=== PATIENT | female | born 1950 | race Caucasian/White ===

== ENCOUNTER 2017-08-07 08:54 | Outpatient (CLI) | payer BC ==
--- NOTE | 2017-08-07 11:00 | ULT ---
RIGHT UPPER QUADRANT ULTRASOUND: DATE: 08/07/17. COMPARISON: None. HISTORY: Epigastric pain. TECHNIQUE: Multiplanar, bai scale, sonographic imaging of the right upper quadrant provided. FINDINGS: The septic tank servicer reports a negative Holley's sign. Imaged pancreatic parenchyma is grossly unremarka ble. The distal body and the tail of the pancreas are completely obscured by bowel gas. No discrete focal liver lesion or intrahepatic biliary dilatation is seen. The common bile duct kavitha sures 3 mm, within normal limits. There is gallbladder sludge as well as numerous mobile gallstones within the gallbladder lumen. The re is no gallbladder wall thickening or pericholecystic fluid. The right kidney measures 10.4 cm in craniocaudal dimension and demonstrates no stone, hydronephrosi s, or mass. IMPRESSION: Cholelithiasis and gallbladder sludge. No sonographic evidence of cholecystitis or biliary dilatati on. POS: [facility]
== END 2017-08-07 08:55 | disposition home or self-care (01) ==
LOC: ULT 08:54
PROVIDERS: ATTEND Surgery
DX: R10.13 Epigastric pain (principal); K80.20 Calculus of gallbladder without cholecystitis without obstruction; K82.8 Other specified diseases of gallbladder
CPT/HCPCS: 76705

== ENCOUNTER 2018-04-07 19:13 | Inpatient (IN) | payer MEDICARE, BC ==
[2018-04-07 20:06] LABS: Bilirubin Negative (Negative); Blood, Urine Moderate (Negative); Clarity CLEAR (Clear); Glucose, Urine (Dipstick) Negative (Negative); Leukocyte Negative (Negative); Nitrite Negative (Negative); Protein, Urine (Dipstick) Negative (Neg-Trace); Specific Gravity, Urine 1.008 (1.002-1.036)
[2018-04-07 20:07] LABS: #Lymphocytes 1.6 thou/uL (1.20-3.40); #Monocytes 1.1 thou/uL (0.11-0.59); %Basophils 0.4 % (0.0-1.0); %Eosinophils 0.1 % (0.0-10.0); %Lymphocytes 16.6 % (21.0-51.0); %Monocytes 10.9 % (0.0-10.0); Hemoglobin 13.3 g/dL (12.0-16.0); Mean Corpuscular HGB CONC 32.3 g/dL (32.0-36.0); Mean Corpuscular Hemoglobin 28.3 pg (27.0-31.0); Mean Corpuscular Volume 87.7 fl (81.0-99.0); Platelet Count 275 thou/uL (130-400); Red Blood Cell (RBC) Count 4.69 mill/uL (4.20-5.40); White Blood Cell (WBC) Count 9.7 thou/uL (4.8-10.8)
[2018-04-07 20:08] LABS: Bacteria/HPF None Seen HPF (None Seen); Hyaline Casts/LPF 0-3 HYALINE CAST LPF (0-3 Hyaline); Pathc Cast-AUWi Flag 0.29 (0-2.49); Squamous Epithelial None Seen HPF (0-3); WBC/HPF None Seen HPF (0-3)
[2018-04-07 20:28] LABS: ALT (SGPT) 745 U/L (8-55); AST (SGOT) 1301 U/L (5-34); Albumin 4.7 g/dL (3.4-4.8); Alkaline Phosphatase 192 U/L (40-150); Anion Gap 17 mmol/L (10-20); BUN (Urea Nitrogen) 7 mg/dL (9.8-20.1); Bilirubin, Total 1.6 mg/dL (0.2-1.2); CK (CPK) 82 U/L (29-168); Calc. Creatinine Clearance 0 mL/min (70-130); Calcium 9.7 mg/dL (7.8-10.44); Carbon Dioxide 27 mmol/L (23-31); Chloride 101 mmol/L (98-107); Estimated GFR-MDRD 71; Globulin 3.5 g/dL (2.4-3.5); Glucose 98 mg/dL (80-115); Lipase 16 U/L (8-78); Potassium 3.2 mmol/L (3.5-5.1); Protein, Total 8.2 g/dL (6.0-8.3); Sodium 142 mmol/L (136-145)
[2018-04-07 20:32] LABS: CKMB 0.2 ng/mL (0-6.6); Troponin I Less than 0.010 ng/mL (< 0.028)
--- NOTE | 2018-04-07 20:54 | ULT ---
ULTRASOUND GALLBLADDER RIGHT UPPER QUADRANT 04/07/18 HISTORY: Epigastric pain, nausea, vomiting. History of gallstones. COMPARISON: Gallbladder ultrasound 2017. TECHNIQUE: Real time bai scale, color doppler and spectral analysis of the right upper quadrant of the abdomen is performed. The pancreas is not well seen. the visualized portions of the liver are unremarkable. There is cholelithiasis, pericholecystic fluid, and wall thickening with distention of the gallbladde r indicating acute cholecystitis in the correct clinical setting. Right kidney measures 9.7 x 3.8 x 4 .8 cm without mass, hydronephrosis or abnormal calcifications. Sonographic Holley's sign is positive. Common bile duct is normal. IMPRESSION: Findings suggesting acute cholecystitis in the correct clinical setting. Code T POS: [facility]
[2018-04-07] MEDS ORDERED: Ondansetron ODT 4 MG TAB ONE (21:01)
[2018-04-07] MEDS ORDERED: Piperacillin/Tazobactam 4.5 GM VIAL ONE (22:01)
[2018-04-07] MEDS ORDERED: Ondansetron HCl/PF 4 MG/2 ML Vial IVP PRN (23:36)
[2018-04-07] MEDS ORDERED: Ondansetron ODT 4 MG TAB SL PRN (23:36)
[2018-04-07] MEDS ORDERED: Acetaminophen 325 MG TAB PO PRN (23:44)
[2018-04-07] MEDS ORDERED: Milk Of Magnesia 30 ML UDCUP PO PRN (23:44)
[2018-04-07 23:57] LABS: HBCM Index 0.05 S/CO (0-0.79); HBSAg Index 0.14 S/CO (0-0.99); Hep A IgM AB Non-Reactive (NonReactive); Hep A IgM S/CO 0.23 S/CO (0-0.79); Hep B Surf Ag Non-Reactive S/CO (NonReactive); Hep C IgG Ab Non-Reactive (NonReactive); Hep C Index 0.06 S/CO (0-0.79); Hepatitis B Core IGM Abs Non-Reactive (NonReactive)
[2018-04-08] MEDS ORDERED: cloNIDine 0.1 MG TAB PO PRN (00:05)
[2018-04-08] MEDS ORDERED: Lisinopril 10 MG TAB PO SCH (00:15)
[2018-04-08] MEDS: Sodium Chloride 0.9% 1,000 ML IV SCH ×2 (01:22→06:32)
[2018-04-08] MEDS ORDERED: hydrALAZINE 20 MG/ML VIAL SLOW IVP PRN (01:39)
--- NOTE | 2018-04-08 02:27 | HP ---
PRIMARY CARE PHYSICIAN: Alirio Gloria D.O. PRESENTING COMPLAINT: Abdominal pain. HISTORY OF PRESENT ILLNESS: Ms. Kya Banegas is a 67-year-old female who has a past medical h istory of hypertension, hypothyroidism, and presented to the emergency room with complaints of epigas tric pain which started around 2:00 a.m. on Monday. She reports the pain is constant, crampy about 7-8/10 with no clear aggravating or relieving factors. She has not had any previous episodes in the past. She has nausea, but no vomiting. She also reports dry heaves, chills, and subjective fevers. She has no chest pain, shortness of breath, PND, orthopnea, lower extremity edema. She has not had any diarrhea or constipation. She has no urinary symptoms. In the emergency room, she was hyperten sive with systolic blood pressure in the 180s. Labs showed a normal CBC. CMP revealed hypokalemia o f 3.2 as well as elevated T bili of 1.6, AST and ALT of 131 and 745 respectively, and alkaline phosph atase of 192. She had an abdominal ultrasound done and it showed findings suggestive of acute cholec ystitis. The patient was then admitted for likely endoscopic cholecystectomy. PAST MEDICAL HISTORY: As stated in the HPI. PAST SURGICAL HISTORY: Two C-sections in the past and bariatric surgery. FAMILY HISTORY: Reviewed, not contributory. SOCIAL HISTORY: Does not drink alcohol, smoke cigarettes, or use illicit drugs. ALLERGIES: No known drug allergies. HOME MEDICATIONS: Levothyroxine 112 mcg daily and lisinopril 10 mg daily. REVIEW OF SYSTEMS: All systems reviewed and negative except as stated in HPI. PHYSICAL EXAMINATION: VITAL SIGNS: Blood pressure on arrival 208/98. Other vital signs are within normal limits. GENERAL: In mild distress from pain. HEENT: Normocephalic, atraumatic. Not pale, anicteric. Moist mucous membranes. PERRLA, EOMI. NECK: Supple, full range of movements. ABDOMEN: Soft, mild epigastric tenderness with no rebound or guarding. Bowel sounds normoactive. N o hepatosplenomegaly. RESPIRATORY: Vesicular breath sounds bilaterally. No wheezes or rales. CARDIOVASCULAR: S1, S2 only. Regular rate and rhythm. No murmurs, rubs or gallops. NEUROLOGIC: Alert and well oriented to time, place and person. No focal deficits. PSYCHIATRIC: Normal mood and affect. MUSCULOSKELETAL: Moves all extremities spontaneously. No edema. SKIN: Warm, dry, well perfused. No rashes or lesions. LABORATORY DATA: CBC and CMP as stated in HPI. IMAGING: Abdominal ultrasound: As stated in the HPI. ASSESSMENT AND PLAN: 1. Acute cholecystitis: Patient presents with abdominal pain, elevated transaminases and imaging horowitz ggestive of acute cholecystitis. General Surgery has been consulted and Dr. Olvera will see the patie nt in the morning for endoscopic cholecystectomy. She will be placed n.p.o. from midnight, on broad spectrum antibiotics with Zosyn, morphine p.r.n. for pain and ondansetron p.r.n. for nausea and vomit ing. 2. Hypertensive urgency: Systolic blood pressure was in the 200s on arrival. The patient reports s he has not taken her medications today due to continued abdominal pain. There is no sign of any end- organ damage. Her blood pressure will be brought back to normal gradually. Home medications will be resumed and she will be placed on IV hydralazine p.r.n. for systolic blood pressure greater than 180 . 3. Hypothyroidism. Patient takes 112 mcg of levothyroxine at home. Last TSH checked in the system was in 06/2017. We will obtain a TSH and resume her home levothyroxine dose. 4. Deep venous thrombosis prophylaxis, SCDs as patient is being prepared for surgery. CODE STATUS: FULL CODE.
[2018-04-08 04:52] LABS: #Basophils 0.1 thou/uL (0.0-0.2); #Eosinphils 0.1 thou/uL (0.0-0.7); #Lymphocytes 1.7 thou/uL (1.20-3.40); #Monocytes 0.6 thou/uL (0.11-0.59); #Neutrophils 4.8 thou/uL (1.40-6.50); %Basophils 0.7 % (0.0-1.0); %Eosinophils 0.8 % (0.0-10.0); %Lymphocytes 23.6 % (21.0-51.0); %Monocytes 8.7 % (0.0-10.0); %Neutrophils 66.2 % (42.0-75.0); Hemoglobin 11.4 g/dL (12.0-16.0); Mean Corpuscular HGB CONC 32.2 g/dL (32.0-36.0); Mean Corpuscular Hemoglobin 28.5 pg (27.0-31.0); Mean Corpuscular Volume 88.7 fl (81.0-99.0); Mean Platelet Volume 8.2 fL (7.4-10.4); Platelet Count 234 thou/uL (130-400); White Blood Cell (WBC) Count 7.2 thou/uL (4.8-10.8)
[2018-04-08 05:02] VITALS: BMI 24.2
[2018-04-08 05:23] LABS: ALT (SGPT) 506 U/L (8-55); AST (SGOT) 536 U/L (5-34); Albumin 3.8 g/dL (3.4-4.8); Alkaline Phosphatase 154 U/L (40-150); Anion Gap 10 mmol/L (10-20); BUN (Urea Nitrogen) 7 mg/dL (9.8-20.1); Bilirubin, Total 1.8 mg/dL (0.2-1.2); Calc. Creatinine Clearance 74 mL/min (70-130); Calcium 8.6 mg/dL (7.8-10.44); Carbon Dioxide 29 mmol/L (23-31); Chloride 105 mmol/L (98-107); Estimated GFR-MDRD 76; Globulin 2.7 g/dL (2.4-3.5); Glucose 95 mg/dL (80-115); Potassium 3.1 mmol/L (3.5-5.1); Protein, Total 6.5 g/dL (6.0-8.3); Sodium 141 mmol/L (136-145)
[2018-04-08] MEDS: Piperacillin/Tazobactam 3.375 GM in Sodium Chloride 0.9% 100 ML IVPB SCH ×3 (06:24→18:22)
[2018-04-08] MEDS: Levothyroxine Sodium 112 MCG TAB PO SCH (06:24)
[2018-04-08] MEDS: Lisinopril 10 MG TAB PO SCH (09:20)
[2018-04-08] MEDS: Docusate 100 MG CAP PO SCH ×2 (09:20→23:00)
--- NOTE | 2018-04-08 09:55 | CON ---
DATE OF CONSULTATION: 04/08/2018 REQUESTING PHYSICIAN: YOLI Sheth HISTORY OF PRESENT ILLNESS: A 67-year-old woman presented to the emergency department with complaint of insidious onset epigastric abdominal pain which started approximately 0200 hours yester day. Pain was rated at 8/10 radiating to her back. The patient tried several [id number] medications including enemas to achieve relief without suc cess. She reported multiple episodes of nausea, but no emesis. She denies any diarrhea or abdominal bloati ng. She reported some episode of hiccups. She admits to some chills, but no fevers. She has not experie nced similar pain in the past. PAST MEDICAL HISTORY: Pertinent for essential hypertension and hypothyroidism. PAST SURGICAL HISTORY: Pertinent for x2, bilateral feet bunionectomies and laparoscopic sl eeve gastrectomy 3 years ago. SOCIAL HISTORY: She is and lives at home with her . She denies any cigarette smoking , ethanol or illicit drug abuse. FAMILY HISTORY: Noncontributory for this patient's age. PREHOSPITALIZATION MEDICATIONS: Include levothyroxine 112 mcg p.o. daily and lisinopril 10 mg p.o. d aily. ALLERGIES: Patient denies any known drug allergies. REVIEW OF SYSTEMS: Ten point review of systems essentially unremarkable except for as stated in past medical history and chief complaint. PHYSICAL EXAMINATION: GENERAL: This reveals a 67-year-old normally developed woman who is otherwise coherent and interacti ve and appears stated age. The patient is alert and oriented x3, appears to be in no acute distress at the time of my evaluation. VITAL SIGNS: Currently includes blood pressure 133/81, pulse 62, respiration rate 16, temperature is 97.7 degrees Fahrenheit, oxygen saturation is 98% on room air. HEENT: Reveals normocephalic and atraumatic. She has no sclerae icterus present. HEART: Reveals regular rate and rhythm, no murmurs or gallops auscultated. LUNGS: Clear to auscultation bilaterally. Her breathing is regular and unlabored. ABDOMEN: Soft with epigastric tenderness to palpation. Liver and spleen are otherwise nonpalpable b elow costal margin. EXTREMITIES: Reveals 2+ radial and pedal pulses bilaterally. No ankle edema is present. NEUROLOGIC: Reveals no focal deficits present. PERTINENT LABORATORY FINDINGS: Includes a CBC this morning with 7200 white blood cells, hemoglobin a nd hematocrit 11.4 and 35.5 respectively. Platelet count is 234,000. Metabolic profile: Sodium 141 , potassium is 3.1, chloride is 105, bicarbonate is 29, BUN 7, creatinine 0.76, and glucose is 95. T otal bilirubin is 1.8. AST and ALT noted at 536 and 506 respectively. Alkaline phosphatase is eleva alejandro at 154. Contrast to LFTs yesterday with total bilirubin was 1.6, AST and ALT markedly elevated a t 1301 and 745 respectively. Alkaline phosphatase then was 192. I have personally reviewed the abdo kurt ultrasound, which was obtained on this admission which reveals multiple intraluminal gallstones , pericholecystic fluid and gallbladder wall thickening is also noted. Common bile duct is normal in diameter at 4 mm. IMPRESSION: 1. Acute cholecystitis with cholelithiasis. 2. History of essential hypertension and hypothyroidism. PLAN: Laparoscopic cholecystectomy. Given the abnormal LFTs, we will perform an intraoperative chol angiogram. We will perform intraoperative cholangiogram to exclude choledocholithiasis. The above f indings and plan discussed with the patient and her at bedside. I have also advised him of t he risk and benefits of the proposed surgery to include, but not limited to bleeding, infection, inju ry to bile duct or surrounding structures. The patient and her have indicated understanding of the information given. I have answered their questions. The patient has given consent for this s urgical intervention.
[2018-04-08] MEDS ORDERED: Lidocaine 1% PF 5 ML VIAL ONE (10:23)
[2018-04-08] MEDS ORDERED: PROPOFOL 200 MG/20 ML VIAL ONE (10:23)
[2018-04-08] MEDS ORDERED: Glycopyrrolate 0.2 MG/ML 5 ML SYRINGE ONE (10:23)
[2018-04-08] MEDS ORDERED: Ondansetron HCl/PF 4 MG/2 ML Vial ONE (10:23)
[2018-04-08] MEDS ORDERED: Ketorolac Tromethamine 30 MG/ML VIAL ONE (10:23)
[2018-04-08] MEDS ORDERED: Dexamethasone 20 MG/5 ML VIAL ONE (10:23)
[2018-04-08] MEDS ORDERED: Labetalol 100 MG/20 ML MDV ONE (10:23)
[2018-04-08] MEDS ORDERED: Fentanyl 250 MCG/5 ML VIAL ONE (11:02)
[2018-04-08] MEDS ORDERED: Iothalamate Meglumine 60% 50 ML VIAL FS ONE (11:07)
[2018-04-08] MEDS ORDERED: Bupivacaine/Epinephrine 0.25% 30 ML VIAL ONE (11:07)
[2018-04-08] MEDS ORDERED: traMADol HCl 50 MG TAB PO PRN ×2 (12:45)
[2018-04-08] MEDS ORDERED: Promethazine HCl 25 MG/ML VIAL SLOW IVP PRN (12:51)
[2018-04-08] MEDS ORDERED: Ondansetron HCl/PF 4 MG/2 ML Vial IVP PRN (12:51)
[2018-04-08] MEDS ORDERED: Promethazine HCl 25 MG/ML VIAL IM PRN (12:51)
[2018-04-08] MEDS ORDERED: Meperidine HCl/PF 25 MG/ML VIAL SLOW IVP PRN (12:51)
[2018-04-08] MEDS ORDERED: Fentanyl 100 MCG/2 ML VIAL ONE (13:08)
[2018-04-08] MEDS ORDERED: hydrALAZINE 20 MG/ML VIAL ONE (13:08)
--- NOTE | 2018-04-08 14:36 | RAD ---
INTRAOPERATIVE CHOLANGIOGRAM FLUOROSCOPY: HISTORY: Cholecystitis. FINDINGS: Intraoperative fluoroscopy was performed for cholangiogram as performed by Dr. Olvera. Spot fluorosco pic images show contrast opacification of a nondilated common duct. No filling defects apparent. Co ntrast has passed into the duodenum. Fluoro time=10 seconds. POS: [facility]
--- NOTE | 2018-04-08 16:56 | PDOC.PN ---
- Subjective Encounter Start Date: 04/08/18 (f/u hypertension) Encounter Start Time: 16:53 Subjective: Pt reports feeling better - had some left shoulder pain post-op that is -: improved with pain medicine. Denies any cp/sob/n/v - Objective Resuscitation Status: Resuscitation Status FULL:Full Resuscitation Vital Signs & Weight: Vital Signs (12 hours) Temp Pulse Resp BP BP Pulse Ox 04/08/18 09:20 133/81 04/08/18 08:00 97.7 F 62 16 98 04/08/18 07:39 97.7 F 62 16 133/81 98 I&O: 04/07/18 04/08/18 04/09/18 06:59 06:59 06:59 Intake Total 1000 Balance 1000 Result Diagrams: 04/08/18 04:18 04/08/18 04:18 Phys Exam - Physical Examination Constitutional: NAD Respiratory: no wheezing, no rales, no rhonchi Cardiovascular: RRR, no significant murmur Gastrointestinal: soft, positive bowel sounds Musculoskeletal: no edema, pulses present Neurological: non-focal, moves all 4 limbs Psychiatric: normal affect Skin: no rash Dx/Plan (1) Acute cholecystitis Code(s): K81.0 - ACUTE CHOLECYSTITIS Status: Acute (2) Hypertension Code(s): I10 - ESSENTIAL (PRIMARY) HYPERTENSION Status: Chronic Qualifiers: Hypertension type: essential hypertension Qualified Code(s): I10 - Essential (primary) hypertension (3) Hypokalemia Code(s): E87.6 - HYPOKALEMIA Status: Acute (4) Hypothyroid Code(s): E03.9 - HYPOTHYROIDISM, UNSPECIFIED Status: Chronic - Plan * Acute cholecystitis - s/p cholecystectomy with Dr. Olvera * * HTN - controlled after pain med, pt is written for her home lisinopril - follow renal function and bp's * * hypokalemia - recheck in AM - was replaced on admission * * hypothyroidism - TSH is 9 - will need outpatient evaluation and possibly adjustment of levothyroxine after discharge * * dvt prophy - scd's * gi prophy - not indicated * * code status full * * pt/family with questions about diet and driving after d/c to home - requested they discuss this With Dr Olvera/surgeon\ * No questions or further needs at end of eval.
--- NOTE | 2018-04-08 17:00 | OP ---
DATE OF OPERATION: 04/08/2018 PREOPERATIVE DIAGNOSIS: Acute cholecystitis with cholelithiasis. POSTOPERATIVE DIAGNOSIS: Acute cholecystitis with cholelithiasis. OPERATIONS PERFORMED: Laparoscopic cholecystectomy with intraoperative cholangiogram. SURGEON: Jamal Olvera D.O. HAND SCRAPER: Cynthia Bean. ANESTHESIA: General endotracheal. ESTIMATED BLOOD LOSS: 20 mL FLUIDS GIVEN: 800 mL crystalloids. SPONGE AND INSTRUMENT COUNT: Certified as correct x2. COMPLICATIONS: None apparent. INDICATIONS FOR PROCEDURE: This is a 67-year-old woman who presented with epigastric right upper kennedy drant abdominal pain. Clinical radiographic examination was consistent with acute cholecystitis and cholelithiasis, for which the patient brought to the operating room for cholecystectomy. LFTs were markedly elevated on admission, on repeat examination revealed improvement in the laborator y findings. Clinical examination also reveals a woman whose abdominal pain was resolving. Decision was made therefore to bring the patient to the operating room for laparoscopic cholecystectomy with i ntraoperative cholangiogram. Findings are consistent with gallbladder in the usual anatomic location completely encased by omental adhesions. Cholangiogram also revealed a single common duct filling defect, which cleared easily wi th flushing. Subsequent cholangiogram revealed no filling defects at that time. DESCRIPTION OF PROCEDURE: Informed consent was obtained from the patient who was brought to the oper ating room and placed in supine position. Following general anesthesia, abdomen is sterilely prepped and draped in usual fashion. The skin below the umbilicus was infiltrated with 0.25% Marcaine with epinephrine. Small curvilinear infraumbilical incision is made using an 11 scalpel. Umbilical stalk was grasped with Ki's and elevated. Veress needle was inserted through the incision and placed in the peritoneal cavity through which the abdomen was insufflated with 3 liters of CO2 gas. Intraab dominal pressure noted at 1 mmHg. Following abdominal insufflation, Veress needle was removed, 5 mm trocar introduced using the Visiport under laparoscopy. Laparoscopy confirmed proper placement of th e port, no injuries to underlying structures. Additional laparoscopy reveals gallbladder in the usua l anatomic location completely encased by omental adhesions. Under laparoscopy, a 12 mm epigastric a nd two 5 mm right lateral subcostal ports were placed after the overlying skin were infiltrated with 0.25% Marcaine with epinephrine and appropriate incisions made. The patient was placed in a reverse Trendelenburg position, rotated to her left. I introduced a Terrie dissector with cautery, using th is to take down omental adhesions to reveal the fundus of the gallbladder which was then grasped with a Prestige grasper from the right lateral subcostal port. The fundus of the gallbladder was then el evated cephalad. Omental adhesions were then taken down from the remainder of the gallbladder using cautery with good hemostasis. The cystic duct was dissected free from surrounding structures at the triangle of Calot. A single clip was then applied at the junction of the cystic duct and gallbladder . Cystic artery was dissected free from surrounding structures and divided between clips. Two clips were applied proximally and one clip at the junction of the cystic artery and gallbladder. I then u sed an Endo Shear form a cystotomy proximal to the securing cystic ductal clip. A cholangiocatheter was introduced in the right upper quadrant. Flushed first with saline. This was inserted into the c ystic ductal lumen secured with 2 clips. Cholangiogram was completed using a total of 15 mL of Conra y contrast. Total fluoroscopy time was 10 seconds. Final cholangiogram revealed no filling defects in the common bile duct. The securing clips were removed and the cholangiocatheter was removed from the peritoneal cavity. The cystic duct divided between clips, applying two clips proximally. The ga llbladder itself was removed from the liver bed using cautery with good hemostasis. This was deliver ed of the abdominal cavity using an EndoCatch. Operative site was irrigated with saline, noting good hemostasis in place. All clips remain in place. Finding no other pathology at this juncture, lapar oscopy was terminated. Fascia of the epigastric port was closed using 0 Vicryl suture and Endo closu re device under laparoscopy. Abdomen was desufflated. All ports and instruments removed and account ed for. Skin incisions closed using 4-0 Monocryl suture in subcuticular fashion. Dermabond was appl ied over incisional closure. The patient tolerated the operation without any apparent complications and was returned to recovery room in a satisfactory condition.
[2018-04-08] MEDS: Acetaminophen 500 MG TAB PO SCH (18:23)
[2018-04-08] MEDS: Ketorolac Tromethamine 30 MG/ML VIAL IVP SCH (18:23)
[2018-04-09] MEDS: Ketorolac Tromethamine 30 MG/ML VIAL IVP SCH ×2 (00:51→06:57)
[2018-04-09] MEDS: Acetaminophen 500 MG TAB PO SCH ×2 (00:51→06:58)
[2018-04-09] MEDS: Piperacillin/Tazobactam 3.375 GM in Sodium Chloride 0.9% 100 ML IVPB SCH ×2 (00:52→06:56)
[2018-04-09 05:39] LABS: ALT (SGPT) 352 U/L (8-55); AST (SGOT) 221 U/L (5-34); Albumin 3.7 g/dL (3.4-4.8); Alkaline Phosphatase 137 U/L (40-150); Anion Gap 12 mmol/L (10-20); BUN (Urea Nitrogen) 11 mg/dL (9.8-20.1); Bilirubin, Direct 0.6 mg/dL (0.1-0.3); Bilirubin, Total 1.6 mg/dL (0.2-1.2); Calc. Creatinine Clearance 67 mL/min (70-130); Calcium 8.7 mg/dL (7.8-10.44); Carbon Dioxide 26 mmol/L (23-31); Chloride 103 mmol/L (98-107); Estimated GFR-MDRD 68; Glucose 112 mg/dL (80-115); Potassium 3.2 mmol/L (3.5-5.1); Protein, Total 6.4 g/dL (6.0-8.3); Sodium 138 mmol/L (136-145)
[2018-04-09] MEDS ORDERED: Potassium Chloride 20 MEQ TAB PO SCH ×2 (06:45→08:00)
[2018-04-09] MEDS: Levothyroxine Sodium 112 MCG TAB PO SCH (06:57)
[2018-04-09 07:51] VITALS: BP 143/73; TEMP 98.3
--- NOTE | 2018-04-09 08:55 | DIS ---
DATE OF ADMISSION: 03/07/2018 DATE OF DISCHARGE: 04/09/2018 DISCHARGE DIAGNOSES: 1. Acute cholecystitis. 2. Hypertension. 3. Hypothyroidism. HISTORY OF PRESENT ILLNESS/HOSPITAL COURSE: Ms. Lelia Banegas is a 67-year-old female with a histor y of hypertension and hypothyroidism. She presented to the emergency room with epigastric pain which was constant, crampy, 8/10 with no clear aggravating or relieving factors. No previous episode in t he past. She had nausea, but no vomiting. She also had dry heaves. She also had subjective fevers. At the emergency room, she was found to be hypertensive with systolic blood pressure in the 180s. CBC was unremarkable. CMP revealed hypokalemia as well as elevated transaminases. An abdominal ultr asound done showed findings suggestive of acute cholecystitis. She was started on IV fluids, pain co ntrol and IV Zosyn. General Surgery was consulted and the patient had laparoscopic cholecystectomy. Her blood pressure was also controlled with her home medication on IV hydralazine and labetalol p.r. n. for systolic blood pressure greater than 180. She responded well to therapy. She was able to james erate a diet and discharged home safely. PHYSICAL EXAMINATION: She was examined on the day of discharge. VITAL SIGNS: Blood pressure 143/73, oxygen saturation 98% on room air, respiratory rate 18, pulse ra te 58, temperature 98.3 degrees Fahrenheit. GENERAL: Not in acute distress, lying comfortably in bed. HEENT: Normocephalic, atraumatic. Not pale, anicteric. Moist mucous membranes. NECK: Supple, full range of movement. RESPIRATORY: Vesicular breath sounds bilaterally. No wheezes, rales or rhonchi. CARDIOVASCULAR: S1, S2 normal. Regular rate and rhythm. No murmurs, rubs or gallops. ABDOMEN: Soft, nontender, nondistended. Bowel sounds normoactive. No hepatosplenomegaly. NEUROLOGIC: Alert and well oriented to time, place and person. No focal deficits. PSYCHIATRIC: Normal mood and affect. SKIN: Warm, dry, well-perfused. No rashes or lesions. MUSCULOSKELETAL: No edema. LABORATORY: WBC 7.2, hemoglobin 11.4, platelet count 234. Sodium 138, potassium 3.2, chloride 103, carbon dioxide 22, BUN 11, creatinine 0.84. IMAGING: Abdominal ultrasound as stated in HPI and intraoperative cholangiogram fluoroscopy shows op acification of the nondilated common duct, no filling defect apparent. PROCEDURES: Laparoscopic cholecystectomy. CONDITION ON DISCHARGE: Stable and improved. CARE GOALS: To follow up with her primary care physician within 2 weeks of discharge. Also for foll owup with General Surgery in 10 days. ACTIVITY: As tolerated and directed by General Surgery. DISPOSITION: Home. DISCHARGE TIME: 55 minutes including chart review and documentation.
[2018-04-09] MEDS: Docusate 100 MG CAP PO SCH (09:02)
[2018-04-09] MEDS: Lisinopril 10 MG TAB PO SCH (09:02)
== END 2018-04-09 11:33 | disposition home or self-care (01) | DRG 419 ==
LOC: ERS 19:13 → SURG B 22:00
PROVIDERS: ADMIT Internal Medicine; ATTEND Internal Medicine
PROC: 0FT44ZZ Resection of Gallbladder, Percutaneous Endoscopic Approach (ICD-10-PCS; principal; 2018-04-08)
PROC: BF101ZZ Fluoroscopy of Bile Ducts using Low Osmolar Contrast (ICD-10-PCS; 2018-04-08)
DX: K80.00 Calculus of gallbladder with acute cholecystitis without obstruction (principal); I16.0 Hypertensive urgency; E03.9 Hypothyroidism, unspecified; E87.6 Hypokalemia; Z90.49 Acquired absence of other specified parts of digestive tract
CPT/HCPCS: 36415; 47532; 76705; 80048; 80053; 80074; 80076; 81003; 81015; 82550; 82553; 83690; 83735; 84443; 84484; 85025; 88304; 93005; 96365; 96375; J0360; J1100; J1885; J2001; J2270; J2405; J2543; J2704; J3010; J7050; Q0162; Q9961